=== PATIENT | female | born 1930 | race Caucasian/White ===

== ENCOUNTER → 2017-02-05 | Outpatient (CLI) | payer MEDICARE, MEDICAID ==
--- NOTE | 2017-02-05 14:57 | PCVCIMAG ---
APPROVED REPORT Indications Stenosis Risk Factors Hypertension: Hyperlipidemia Doppler Spectral Velocity Analysis PSV / EDVPSV / EDV ECA (R) 103 / 13 cm/sECA (L) 81 / 10 cm/s dICA (R) 70 / 19 cm/sdICA (L) 48 / 15 cm/s Chastity (R) 62 / 14 cm/smICA (L) 113 / 21 cm/s pICA (R) 63 / 14 cm/spICA (L) 80 / 26 cm/s Bulb (R) 65 / 11 cm/sBulb (L) 72 / 15 cm/s dCCA (R) 64 / 13 cm/sdCCA (L) 61 / 13 cm/s mCCA (R) 72 / 14 cm/smCCA (L) 66 / 17 cm/s Vert (R) 40 / 9 cm/sVert (L) 37 / 12 cm/s ICA/CCA 1.09ICA/CCA 1.85 Basic Measurements Blood Pressure: Pulses: Right Left RightLeft Brachial(Sitting) 120/80weKb533/70mmHgTemporal Real Time B-Mode Imaging Vert. (R)AntegradeVert. (L)Antegrade Findings The right carotid bulb has moderate calcified plaque. The right proximal internal carotid artery shows <40% stenosis. The right common carotid artery shows no significant stenosis. The right external carotid artery shows no significant stenosis. The left carotid bulb has moderate calcified plaque. The left proximal internal carotid artery shows <40% stenosis. The left common carotid artery shows no significant stenosis. The left external carotid artery shows no significant stenosis. Conclusion 1. Right internal carotid artery stenosis (<40%) 2. Left internal carotid artery stenosis (<40%) 3. Antegrade vertebral flow
--- NOTE | 2017-02-05 15:01 | PCVCIMAG ---
APPROVED REPORT Study performed: 02/05/2017 13:34:01 EXAM: Comprehensive 2D, Doppler, and color-flow Echocardiogram Patient Location: Echo lab Status: routine Other Information Study Quality: Adequate Indications Congestive Heart Failure COPD CAD RCA stent 2D Dimensions LVEF(%): 64.12 (>50%) IVSd: 10.06 (7-11mm) LVDd: 52.07 mm PWd: 10.31 (7-11mm) LVDs: 33.75 (25-40mm) Left Atrium: 39.26 (27-40mm) Aortic Root: 33.02 mm LV Single Plane 4CH: 60.57 % LV Single Plane 2CH: 51.04 %[place]'s LVEF: 55.81 % Biplane EF: 56.0 % Volumes Left Atrial Volume (Systole) Single Plane 4CH: 66.96 mLSingle Plane 2CH: 85.50 mL LA ESV Index: 42.00 mL/m2 Aortic Valve AoV Peak Torres.: 2.11 m/s AO Peak Gr.: 17.76 mmHgLVOT Max P.57 mmHg LVOT Max V: 1.07 m/s Mitral Valve E/A Ratio: 0.6 MV Decel. Time: 273.39 ms MV E Max Torres.: 0.66 m/s MV A Torres.: 1.12 m/s MV PHT: 79.28 ms IVRT: 124.57 ms Pulmonary Valve PV Peak Torres.: 1.14 m/sPV Peak Gr.: 5.24 mmHg Pulmonary Vein P Vein S: 0.28 m/sP Vein A: 0.29 m/s P Vein D: 0.31 m/sP Vein A Dur.: 141.9 msec P Vein S/D Ratio: 0.90 Tricuspid Valve TR Peak Torres.: 2.59 m/s TR Peak Gr.: 26.86 mmHg Left Ventricle The left ventricle is normal size. There is normal LV segmental wall motion. There is normal left ventricular wall thickness. Left ventricular systolic function is normal. The left ventricular ejection fraction is within the normal range. LVEF is 55-60%. Grade I - abnormal relaxation pattern. Right Ventricle The right ventricle is normal size. The right ventricular systolic function is normal. Atria Left atrium is mild-moderately dilated. Right atrium is mildly dilated. Aortic Valve The aortic valve is sclerotic. No aortic regurgitation is present. There is no aortic valvular stenosis. Mitral Valve Moderate mitral annular calcification Mild mitral regurgitation. No evidence of mitral valve stenosis. Tricuspid Valve The tricuspid valve is normal in structure. Mild tricuspid regurgitation with PAP of 34 mmHg. Pulmonic Valve The pulmonary valve is normal in structure. There is mild pulmonic valvular regurgitation. Great Vessels The aortic root is normal in size. IVC is normal in size and collapses with >50% inspiration Pericardium There is no pericardial effusion. <Conclusion> Left ventricular systolic function is normal. There is normal LV segmental wall motion. LVEF is 55-60%. Grade I diastolic dysfunction Left atrium is mild-moderately dilated. The aortic valve is sclerotic. No aortic regurgitation or stenosis Moderate mitral annular calcification. Mild mitral regurgitation. Mild tricuspid regurgitation with PAP of 34 mmHg. There is no pericardial effusion.
== END | disposition home or self-care (01) ==
LOC: PCVCIMAG 12:58
PROVIDERS: ATTEND Internal Medicine
DX: I65.23 Occlusion and stenosis of bilateral carotid arteries (principal); I08.1 Rheumatic disorders of both mitral and tricuspid valves; I44.7 Left bundle-branch block, unspecified; I11.0 Hypertensive heart disease with heart failure; I50.32 Chronic diastolic (congestive) heart failure; M32.9 Systemic lupus erythematosus, unspecified; E78.5 Hyperlipidemia, unspecified; J44.9 Chronic obstructive pulmonary disease, unspecified; Z95.5 Presence of coronary angioplasty implant and graft; Z86.73 Personal history of transient ischemic attack (TIA), and cerebral infarction without residual deficits; Z90.49 Acquired absence of other specified parts of digestive tract; Z90.710 Acquired absence of both cervix and uterus; Z96.652 Presence of left artificial knee joint; Z79.82 Long term (current) use of aspirin; Z79.899 Other long term (current) drug therapy; Z88.8 Allergy status to other drugs, medicaments and biological substances; Z91.048 Other nonmedicinal substance allergy status
CPT/HCPCS: 80061; 93005; 93306; 93880; G0463

== ENCOUNTER → 2018-05-18 | Outpatient (CLI) | payer MEDICARE, MEDICAID | END | disposition home or self-care (01) | LOC: PCVCCLINIC 11:17 | PROVIDERS: ATTEND Internal Medicine | DX: I25.10 Atherosclerotic heart disease of native coronary artery without angina pectoris (principal); I11.0 Hypertensive heart disease with heart failure; I50.22 Chronic systolic (congestive) heart failure; E78.5 Hyperlipidemia, unspecified; I44.7 Left bundle-branch block, unspecified; I65.23 Occlusion and stenosis of bilateral carotid arteries; M32.9 Systemic lupus erythematosus, unspecified; Z79.899 Other long term (current) drug therapy | CPT/HCPCS: 36415; 80061; 93005; G0463 ==

== ENCOUNTER → 2018-12-24 | Outpatient (CLI) | payer MEDICARE, MEDICAID | END | disposition home or self-care (01) | LOC: PCVCCLINIC 15:30 | PROVIDERS: ATTEND Internal Medicine | DX: I25.10 Atherosclerotic heart disease of native coronary artery without angina pectoris (principal); I11.0 Hypertensive heart disease with heart failure; I50.22 Chronic systolic (congestive) heart failure; I44.7 Left bundle-branch block, unspecified; I65.23 Occlusion and stenosis of bilateral carotid arteries; M32.9 Systemic lupus erythematosus, unspecified; Z88.2 Allergy status to sulfonamides; Z91.048 Other nonmedicinal substance allergy status | CPT/HCPCS: 36415; 80061; 93005; 93280; G0463 ==

== ENCOUNTER → 2019-02-04 | Outpatient (CLI) | payer MEDICARE, MEDICAID ==
--- NOTE | 2019-02-04 16:54 | PCVCIMAG ---
APPROVED REPORT Study performed: 02/04/2019 15:53:49 EXAM: Comprehensive 2D, Doppler, and color-flow Echocardiogram Patient Location: Echo lab Room #: [id number]: routine BSA: 1.96 HR: 60 bpm Rhythm: LBBB Other Information Study Quality: Fair Risk Factors: Cardiac Risk Factors: HTN, Hyperlipidemia Indications Abnormal ECG Pacemaker CAD Hypertension/HDD 2D Dimensions IVSd: 8.40 (7-11mm)LVOT Diam: 18.90 (18-24mm) LVDd: 54.41 mm PWd: 8.48 (7-11mm)Ascending Ao: 33.08 (22-36mm) LVDs: 39.22 (25-40mm) Left Atrium: 30.31 (27-40mm) Aortic Root: 26.06 mm LV Single Plane 4CH: 29.67 % LV Single Plane 2CH: 50.13 % Biplane EF: 39.6 % Volumes Left Atrial Volume (Systole) Single Plane 4CH: 52.68 mLSingle Plane 2CH: 58.69 mL Biplane LA Volume: 60.00 mLLA ESV Index: 30.00 mL/m2 Aortic Valve AoV Peak Torres.: 1.59 m/s AO Peak Gr.: 10.08 mmHgLVOT Max P.87 mmHg LVOT Max V: 0.85 m/s MANN Vmax: 1.50 cm2 Mitral Valve E/A Ratio: 0.4 MV Decel. Time: 169.00 ms MV E Max Torres.: 0.46 m/s MV A Torres.: 1.07 m/s IVRT: 166.09 ms TDI E/Lateral E': 11.50E/Medial E': 11.50 Medial E' Torres.: 0.04 m/s Lateral E' Torres.: 0.04 m/s Pulmonary Valve PV Peak Torres.: 0.95 m/sPV Peak Gr.: 3.61 mmHg Pulmonary Vein P Vein S: 0.44 m/sP Vein A: 0.65 m/s P Vein D: 0.23 m/sP Vein A Dur.: 93.4 msec P Vein S/D Ratio: 1.91 Tricuspid Valve TR Peak Torres.: 2.12 m/s TR Peak Gr.: 17.92 mmHg TV Vmax: 0.45 m/sPA Pressure: 25.00 mmHg Left Ventricle The left ventricle is normal size. There is normal left ventricular wall thickness. Left ventricular systolic function is mild-moderately decreased. Prominent discordant septal motion, probably from right ventricular pacing LVEF is 45%. Mild diastolic dysfunction is present (impaired relaxation pattern). Right Ventricle The right ventricle is normal size. The right ventricular systolic function is normal. Atria The left atrium size is normal. The right atrium size is normal. Aortic Valve Aortic valve is trileaflet, mildly calcified. No aortic regurgitation is present. There is no aortic valvular stenosis. Mitral Valve Moderate mitral annular calcification There is no mitral valve regurgitation noted. No evidence of mitral valve stenosis. Tricuspid Valve The tricuspid valve is normal in structure. Mild tricuspid regurgitation with a PA pressure of 25 mmHg. Pulmonic Valve The pulmonary valve is normal in structure. There is no pulmonic valvular regurgitation. Great Vessels The aortic root is normal in size. Aortic arch is not well visualized. The ascending aorta is normal in size. IVC is normal in size and collapses >50% with inspiration. Pericardium There is no pericardial effusion. <Conclusion> Left ventricular systolic function is mild-moderately decreased. Prominent discordant septal motion, probably from right ventricular pacing LVEF is 45%. Mild diastolic dysfunction Aortic valve is trileaflet, mildly calcified. No aortic regurgitation or stenosis. Moderate mitral annular calcification. No mitral valve regurgitation. Mild tricuspid regurgitation with a pulmonary artery pressure of 25 mmHg. There is no pericardial effusion.
== END | disposition home or self-care (01) ==
LOC: PCVCIMAG 14:57
PROVIDERS: ATTEND Internal Medicine
DX: I08.1 Rheumatic disorders of both mitral and tricuspid valves (principal); R94.31 Abnormal electrocardiogram [ECG] [EKG]; I25.10 Atherosclerotic heart disease of native coronary artery without angina pectoris; I11.0 Hypertensive heart disease with heart failure; I50.22 Chronic systolic (congestive) heart failure; E78.00 Pure hypercholesterolemia, unspecified; Z95.0 Presence of cardiac pacemaker
CPT/HCPCS: 93005; 93306; G0463